=== PATIENT | female | born 1950 ===

== ENCOUNTER 2018-12-18 12:40 | Outpatient (CLI) | payer OTHER ==
[~2018-12-18] VITALS: Ht 167.6 cm; Wt 66.2 kg
== END 2018-12-18 13:00 | disposition home or self-care (01) ==
LOC: OFIC 805 12:40
DX: H81.49 Vertigo of central origin, unspecified ear (principal); H93.13 Tinnitus, bilateral; H91.90 Unspecified hearing loss, unspecified ear; R09.81 Nasal congestion; G50.1 Atypical facial pain; J30.89 Other allergic rhinitis